=== PATIENT | female | born 1975 | race Caucasian/White ===

== ENCOUNTER 2017-09-07 14:59 | Emergency (ER) | payer MEDICAID, BC ==
[2017-09-07] MEDS: LITHIUM CARBONATE 300 MG CAP PO (16:28)
[2017-09-07] MEDS ORDERED: HALOPERIDOL 5 MG INJ IM (17:30)
[2017-09-07] MEDS ORDERED: ALPRAZOLAM 1 MG TAB PO (18:00)
== END 2017-09-07 18:28 | disposition home or self-care (01) ==
LOC: E/R 18:28
DX: F31.0 Bipolar disorder, current episode hypomanic (principal)
CPT/HCPCS: 99284; J1630